=== PATIENT | male | born 1990 | race Caucasian/White ===

== ENCOUNTER 2022-08-28 01:43 | Emergency (ER) | payer MEDICARE, MEDICAID ==
[2022-08-28] MEDS ORDERED: Ipratropium/Albuterol 3 ML NEB ONE ×3 (02:21→03:05)
[2022-08-28] MEDS ORDERED: predniSONE 20 MG TAB ONE (02:21)
== END 2022-08-28 06:23 | disposition home or self-care (01) ==
LOC: MADERS 01:43
DX: J45.901 Unspecified asthma with (acute) exacerbation (principal); J10.1 Influenza due to other identified influenza virus with other respiratory manifestations; Z20.822 Contact with and (suspected) exposure to COVID-19
CPT/HCPCS: 71046; 87804; J7512; J7620; U0003; U0005